=== PATIENT | female | born 1975 | race Caucasian/White ===

== ENCOUNTER 2016-11-24 07:39 | Day surgery (SDC) | payer OTHER ==
[2016-11-23 13:51] LABS: BASOPHILS 0.3 %; BASOPHILS ABSOLUTE 0.02 10/3/uL (0.0-0.16); EOSINOPHILS 1.1 %; EOSINOPHILS ABSOLUTE 0.09 10/3/uL (0.0-0.53); HEMATOCRIT 37.4 % (36.0-48.0); HEMOGLOBIN 12.9 g/dL (12.0-16.0); IMMATURE GRANULOCYTES 0.3 %; IMMATURE GRANULOCYTES ABSOLUTE 0.02 10/3/uL (0.0-0.11); LYMPHOCYTES 28.4 %; LYMPHOCYTES ABSOLUTE 2.23 10/3/uL (0.67-4.30); MEAN CORPUS HGB CONC 34.5 g/dL (32.0-36.0); MEAN CORPUSCULAR HEMOGLOB 29.5 pg (26.0-34.0); MEAN CORPUSCULAR VOLUME 85.4 fL (80-100); MEAN PLATELET VOLUME 10.1 fL (9.2-13.0); MONOCYTES 4.1 %; MONOCYTES ABSOLUTE 0.32 10/3/uL (0.21-1.20); NEUTROPHILS 65.8 %; NEUTROPHILS ABSOLUTE 5.16 10/3/uL (2.02-8.40); PLATELET COUNT 196 10/3/uL (150-400); RBC DISTRIBUTION WIDTH 13.3 % (12.0-16.0); RED CELL COUNT 4.38 10/6/uL (4.0-5.6); WHITE BLOOD CELLS 7.8 10/3/uL (4.5-10.5)
[2016-11-23 13:54] LABS: MANUAL DIFF NO %
[2016-11-23 13:57] LABS: ASCORBIC ACID (UR NOT ORDER) NEG (NEG); BILIRUBIN, URINE NEGATIVE (NEG); KETONE, URINE NEGATIVE (NEG); LEUKOCYTE ESTERASE(NOT OR NEG (NEG); WBC (NOT ORDERED) (RFLEX) 1 (0-5)
[2016-11-23 14:03] LABS: BUN (BLOOD UREA NITROGEN) 6 MG/DL (6-23); CALCIUM, SERUM 8.6 MG/DL (8.5-10.4); CHLORIDE, SERUM 110 MMOL/L (96-112); CO2 (CARBON DIOXIDE) 29 MMOL/L (24-34); GFR AFRICAN AMERICAN 126 ML/MIN (>=60); GFR NON AFRICAN AMERICAN 108 ML/MIN (>=60); GLUCOSE, SERUM 88 MG/DL (60-99); POTASSIUM, SERUM 3.8 MMOL/L (3.5-5.3); SODIUM, SERUM 144 MMOL/L (135-148)
--- NOTE | ~2016-11-24 | OP ---
Record Of Operation [facility] [address] [place]. [address] NAME: SALVADOR HERNÁNDEZ : 77 STATUS : [facility]#: [id number] AGE: 41 ADM/REG DATE : 11/24/16 MR#: [id number] REPORT SERV DATE: 11/24/16 DICTATED BY: Sean ESPINAL DATE: 11/24/16 REPORT STATUS : Draft TRANSCRIBED BY: MODL DATE: 11/24/16 DATE OF PROCEDURE: 11/24/2016 PREOPERATIVE DIAGNOSIS: Left distal ureteral stone. POSTOPERATIVE DIAGNOSIS: Left distal ureteral stone. PROCEDURE: Cystoscopy, left retrograde pyelography, ureteroscopy, laser lithotripsy, stone extraction, double-J stent placement. SURGEON: Sean Espinal M.D. ANESTHESIA: General. COMPLICATIONS: None. DRAINS: 7-Central African x 24 cm Contour double-J stent. BRIEF HISTORY: Ms. Hernández is a 41-year-old female seen by me for the first time last week. She had had a 9 mm left distal ureteral stone first diagnosed in May of 2016, but for variety of reasons had not sought definitive care and she was having some pain, but no evidence of infection and we discussed reasonable management options. It was my feeling that ureteroscopy would be the best step. We discussed risks of bleeding, infection, anesthesia, injury to adjacent organs, inability to access stone and postoperative stent placement with attendant stent misery. We also discussed the distinct possibility that this stone had become impacted in that period of time and that more aggressive intervention may be necessary. There were no unanswered questions. DESCRIPTION OF PROCEDURE: Under excellent general anesthesia, the patient was prepped and draped in a standard lithotomy position. Cystoscopy was performed with a 30-degree lens, revealed a normal bladder without tumors, stones, or foreign bodies. The orifices appeared normal. An 8-Central African cone-tipped catheter was used to perform a left retrograde pyelogram and showed a filling defect in the left distal ureter consistent with known stone. The ureter was mildly dilated proximal to that. I inserted an angled glidewire through a 5- [place] open-ended catheter and fortunately it passed quite easily. Alongside the wire, I inserted a short rigid ureteroscope and encountered a freely floating stone. While it was long, appeared possibly narrowing up to be removed primarily, I engaged it in a nitinol basket but could not move it through the intramural ureter. I therefore disengaged it from the basket and using a 200 micron holmium YAG laser fiber, completely fragmented the stone into passable and extractable pieces. I got two of the larger pieces out to be sent for analysis and left the rest to be passed spontaneously. I dilutely opacified the collecting system, retrofitted the wire in the cystoscope, placed a 7-Central African x 24 cm Contour double-J stent which coiled nicely in the renal pelvis and bladder. I plan to discharge Ms. Hernández as an outpatient with the following instructions. DISCHARGE INSTRUCTIONS: Record Of Operation [facility] [address] [place]. [id number] NAME: SALVADOR HERNÁNDEZ : 77 STATUS : [facility]#: [id number] AGE: 41 ADM/REG DATE : 11/24/16 MR#: [id number] REPORT SERV DATE: 11/24/16 DICTATED BY: Sean ESPINAL DATE: 11/24/16 REPORT STATUS : Draft TRANSCRIBED BY: MOLLY DATE: 11/24/16 1. Home today. 2. Lortab 5/325 one to two p.o. q.4 hours p.r.n. pain, #20. 3. Pyridium 200 mg one p.o. t.i.d. p.r.n. bladder pain, #15 with two refills. 4. Follow up in my office in five-seven days for cysto, stent removal. LUPE/MOLLY Sean Espinal M.D. / [id number] CC: Sean Espinal M.D.
[~2016-11-24 07:39] MED LIST: ADVIL PO; PROVHFA INH; T PO; ZOL100 PO
[2016-11-28 17:50] LABS: STONE COMPOSITION TWO DNR (())
== END 2016-11-24 14:33 | disposition home or self-care (01) ==
LOC: SDC 07:39
PROC: 0T778DZ Dilation of Left Ureter with Intraluminal Device, Via Natural or Artificial Opening Endoscopic (ICD-10-PCS; 2016-11-24)
PROC: BT1FYZZ Fluoroscopy of Left Kidney, Ureter and Bladder using Other Contrast (ICD-10-PCS; 2016-11-24)
PROC: 0TF78ZZ Fragmentation in Left Ureter, Via Natural or Artificial Opening Endoscopic (ICD-10-PCS; principal; 2016-11-24 09:15)
DX: N20.1 Calculus of ureter (principal); J44.9 Chronic obstructive pulmonary disease, unspecified; F41.9 Anxiety disorder, unspecified; J45.909 Unspecified asthma, uncomplicated; F17.210 Nicotine dependence, cigarettes, uncomplicated; B19.10 Unspecified viral hepatitis B without hepatic coma; Z88.2 Allergy status to sulfonamides; Z98.890 Other specified postprocedural states; Z91.040 Latex allergy status; Z88.1 Allergy status to other antibiotic agents; Z79.899 Other long term (current) drug therapy
CPT/HCPCS: 74420; 80048; 81001; 82365; 84703; 85025; 94640; A9270-GY; C1758; C1769; C1874; J2250; J2405; J2710; J3010; Q9967